=== PATIENT | male | born 1985 | race Caucasian/White ===

== ENCOUNTER 2018-08-14 11:44 | Emergency (ER) | payer OTHER, SELFPAY ==
[2018-08-14] MEDS ORDERED: Adacel (T-DAP) 0.5 ML VIAL ONE (11:51)
[2018-08-14 12:03] LABS: Lavender RECEIVED; Red RECEIVED
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
[2018-08-14 12:11] LABS: #Basophils 0.1 thou/uL (0.0-0.2); #Eosinphils 0.2 thou/uL (0.0-0.7); #Lymphocytes 2.9 thou/uL (1.20-3.40); #Monocytes 0.7 thou/uL (0.11-0.59); #Neutrophils 4.2 thou/uL (1.40-6.50); %Eosinophils 2.5 % (0.0-10.0); %Lymphocytes 35.6 % (21.0-51.0); %Monocytes 8.9 % (0.0-10.0); %Neutrophils 51.9 % (42.0-75.0); Hemoglobin 16.2 g/dL (14.0-18.0); Mean Corpuscular HGB CONC 33.4 g/dL (32.0-36.0); Mean Corpuscular Hemoglobin 30.1 pg (27.0-31.0); Mean Corpuscular Volume 90.1 fL (78.0-98.0); Mean Platelet Volume 6.9 fL (7.4-10.4); Platelet Count 337 thou/uL (130-400); RBC Distribution Width 11.8 % (11.5-14.5); Red Blood Cell (RBC) Count 5.39 mill/uL (4.70-6.10); White Blood Cell (WBC) Count 8.1 thou/uL (4.8-10.8)
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
[2018-08-14 12:13] LABS: INR-International Normal Ratio 0.9; PTT 30.7 SEC (22.9-36.1); Prothrombin Time 12.7 SEC (12.0-14.7)
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
[2018-08-14 12:22] LABS: Albumin 4.4 g/dL (3.5-5.0); Calcium 9.5 mg/dL (7.8-10.44); Chloride 106 mmol/L (98-107); Globulin 3.5 g/dL (2.4-3.5); Glucose 114 mg/dL (70-105); Potassium 4.2 mmol/L (3.5-5.1); Protein, Total 7.9 g/dL (6.0-8.3); Sodium 138 mmol/L (136-145)
[2018-08-14 12:23] LABS: Anion Gap 13 mmol/L (10-20); Bilirubin, Total 0.6 mg/dL (0.2-1.2); Carbon Dioxide 23 mmol/L (22-29)
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
[2018-08-14 12:24] LABS: Alkaline Phosphatase 91 U/L (40-150)
[2018-08-14 12:25] LABS: CKMB 5.9 ng/mL (0-6.6); Calc. Creatinine Clearance 0 mL/min (70-130); Estimated GFR-MDRD 84; Troponin I Less than 0.010 ng/mL (< 0.028)
[2018-08-14 12:26] LABS: BUN (Urea Nitrogen) 11 mg/dL (8.9-20.6)
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
[2018-08-14 12:27] LABS: ALT (SGPT) 53 U/L (8-55); AST (SGOT) 38 U/L (5-34)
[2018-08-14 12:28] LABS: CK (CPK) 340 U/L (30-200)
[2018-08-14] MEDS ORDERED: cefTRIAXone\\ROCEPHIN 2 GM VIAL ONE (12:53)
== END 2018-08-14 13:30 | disposition home or self-care (01) ==
LOC: EDBD 11:44 → ERS 11:44
DX: S00.211A Abrasion of right eyelid and periocular area, initial encounter (principal); S00.81XA Abrasion of other part of head, initial encounter; S30.811A Abrasion of abdominal wall, initial encounter; S40.211A Abrasion of right shoulder, initial encounter; Z23 Encounter for immunization; V03.99XA Pedestrian with other conveyance injured in collision with car, pick-up truck or van, unspecified whether traffic or nontraffic accident, initial encounter
CPT/HCPCS: 70450; 71045; 72125; 72170; 80053; 82550; 82553; 83605; 84484; 85025; 85610; 85730; 90715; 93005; 94760; 96365; G0390; J0696